=== PATIENT | female | born 1965 | race Hispanic/Latino ===

== ENCOUNTER 2020-01-25 08:38 | Observation (INO) | payer OTHER ==
[~2020-01-25] VITALS: Ht 149.9 cm; Wt 58.5 kg
[~2020-01-25 08:38] MED LIST: COLLAGEN PLUS1 EACH PO; ROPIVACAINE 246.25 MG, EPINEPHRINE HCL 1:1000 1ML 0.5 MG, CLONIDINE HCL 0.08 MG, KETORO... INJ ONE; VIT C PO; VIT D3 PO; VIT E PO
[2020-01-25] MEDS ORDERED: CELECOXIB 200 MG CAP ONE (09:27)
[2020-01-25] MEDS ORDERED: GABAPENTIN 300 MG CAP ONE (09:27)
[2020-01-25] MEDS ORDERED: DEXAMETHASONE SOD PHOS 10 MG/1 ML VIAL ONE (09:27)
[2020-01-25] MEDS ORDERED: CEFAZOLIN SOD 1 GM/NS 50ML 100 ML IV ONE (09:28)
[2020-01-25] MEDS ORDERED: SODIUM CHLORIDE 0.9% 500ML 500 ML ONE (09:56)
[2020-01-25] MEDS ORDERED: VANCOMYCIN HCL 1,000 MG ONE (09:56)
[2020-01-25] MEDS ORDERED: TRANEXAMIC ACID 1,000 MG/10 ML ML ONE (09:56)
[2020-01-25] MEDS ORDERED: ONDANSETRON HCL INJ 2MG/ML 2ML 2 MG/ML VIAL IV PRN (11:45)
[2020-01-25] MEDS ORDERED: HYDROCODONE/APAP 7.5MG-325MG 1 EA TAB PO PRN (11:45)
[2020-01-25] MEDS ORDERED: ACETAMINOPHEN 650 MG SUPP PR PRN (11:45)
[2020-01-25] MEDS ORDERED: DOCUSATE SODIUM 100 MG CAP PO PRN (11:45)
[2020-01-25] MEDS ORDERED: DIPHENHYDRAMINE HCL INJ 50 MG/ML VIAL IV PRN (11:45)
[2020-01-25] MEDS ORDERED: KETOROLAC TROMETHAMINE 30 MG/ML VIAL IV PRN (11:45)
[2020-01-25] MEDS ORDERED: ZOLPIDEM TARTRATE 5 MG TAB PO PRN (11:45)
[2020-01-25] MEDS ORDERED: MIDAZOLAM HCL 2 MG/2 ML VIAL ONE (11:54)
[2020-01-25] MEDS ORDERED: FENTANYL CITRATE/PF 100MCG/2 ML INJ ONE ×2 (11:54→12:09)
[2020-01-25] MEDS ORDERED: MEPERIDINE HCL INJ 25 MG/ML VIAL ONE (12:15)
--- NOTE | 2020-01-25 12:16 | Diagnostic Imaging Report ---
X-ray right knee portable History: Postop Comparison: None Findings: Status post tibiofemoral arthroplasty with expected postoperative changes of soft tissue swelling, air, orthopedic hardware in near anatomic alignment. Impression: As above. Signed by: Laith Freed MD on 01/25/2020 12:12 PM
[2020-01-25] MEDS ORDERED: DEXAMETHASONE SOD PHOS INJ 4 MG/ML VIAL ONE (12:32)
[2020-01-25] MEDS ORDERED: PROPOFOL IV EMULSION 10 MG/ML 20 ML VIAL ONE (12:32)
[2020-01-25] MEDS ORDERED: LIDOCAINE HCL 2% LOCAL INJ 5 ML SDV VIAL INJ ONE (12:32)
[2020-01-25] MEDS ORDERED: ONDANSETRON HCL INJ 2MG/ML 2ML 2 MG/ML VIAL ONE (12:32)
[2020-01-25] MEDS ORDERED: SEVOFLURANE INHAL SOLN 250 ML PEN BTL ONE (12:32)
--- OUTSIDE RECORDS SUMMARY | 2020-01-25 12:34 | XMS REPORT | Clinical Summary ---
Author Author [facility] Address Unknown Phone Unavailable Care Team Providers Care Blender Helper Name Role Phone Geovani Vaca MD PCP Unavailable Allergies No Known Allergies Medications End Date Status Medication Sig Dispensed Refills Start Date Active calcium carbonate/vitamin Take by 0 D3 (CALCIUM+D ORAL) mouth. Active omega-3s/dha/epa/fish oil Take by 0 (OMEGA 3 ORAL) mouth. Active estradiol (ESTRACE) 0.01 Place 0 % (0.1 mg/gram) vaginal vaginally 3 cream (three) times a week. Active Problems Not on file Social History Date Tobacco Use Types Packs/Day Years Used Never Smoker Smokeless Tobacco: Never Used Drinks/Week oz/Week Comments Alcohol Use No Sex Assigned at Date Recorded Not on file Last Filed Vital Signs Not on file Plan of Treatment Health Maintenance Due Date Last Done Comments BREAST CANCER SCREENING 1965 CERVICAL CANCER SCREENING 1988 PAP ONLY (Age 21-65) LIPID PANEL 2012 INFLUENZA VACCINE (#1) 2019 COLON CANCER SCREENING 12/21/2027 12/20/2017 COLONOSCOPY Results Not on fileafter 01/24/2019 Insurance Type Payer Benefit Subscriber ID Effective Phone Address Plan / Dates Group ABE FISH [id number] 2017-P SUPERIOR resent [phone]
--- OUTSIDE RECORDS SUMMARY | 2020-01-25 12:34 | XMS REPORT | Continuity of Care Document ---
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 Name Role Phone Geovani Vaca MD PCP Unavailable MAGALI SANFORD Atttosin Unavailable Rashaad CHANG Admphynatalia Unavailable Payers Payer Name Policy Type Policy Number Effective Date Expiration Date S ource Problems Condition Name Condition Details Condition Category Status Onset Date Resolution Date Last Treatment Date Treating Clinician Comments Source Prediabetes Prediabetes Problem Active 2019-03-09 00:00:00 [facility] Mixed hyperlipidemia Mixed Hyperlipidemia Problem Active 00:00:00 [facility] Recurrent hematuria Recurrent Hematuria Problem Active 2018-11-03 00:00 :00 [facility] Osteoarthritis of knee Osteoarthritis of Knee Problem Active 2018-10-28 00:00:00 [facility] Allergies, Adverse Reactions, Alerts Allergy Name Allergy Type Status Severity Reaction(s) Onset Date Inacti ve Date Treating Clinician Comments Source No Known Drug Allergies DA Active U 2019-04-08 00:00:00 [facility] nickel DA Active MO 2019-04-08 00:00:00 [facility] No Known Contrast Allergies DA Active U 2003-10-10 00:00: 00 [facility] No Known Drug Allergies DA Active U 2003-10-10 00:00:00 [facility] No Known Food Allergies DA Active U 2003-10-10 00:00:00 [facility] No Known Other Allergies DA Active U 2003-10-10 00:00:00 [facility] No Known Drug Intolerances DA Active U 2003-10-09 00:00:0 0 [facility] Social History Social Habit Start Date Stop Date Quantity Comments Source Sex Assigned At [facility] Tobacco use and exposure 2017-12-20 00:00:00 2017-12-20 00:00:00 Montserrat garcia used [facility] Alcohol intake 2017-12-20 00:00:00 2017-12-20 00:00:00 Current non-drinker of alcohol (finding) [facility] Heraclio garcia Smoking Status Start Date Stop Date Source Never smoker [facility] Medications Ordered Medication Name Filled Medication Name Start Date Stop Da te Current Medication? Ordering Clinician Indication Dosage Frequency Signature (SIG) Comments Components Source calcium carbonate/vitamin D3 (CALCIUM+D ORAL) 2017-12-20 11:13:3 2 Yes Take by mouth. [facility] omega-3s/dha/epa/fish oil (OMEGA 3 ORAL) 2017-12-20 11:13:32 Yes Take by mouth. [facility] estradiol (ESTRACE) 0.01 % (0.1 mg/gram) vaginal cream 2017-12-20 11:13:[id number] vaginally 3 (three) times a week. [facility] estradiol 0.01% (0.1 mg/gram) vaginal cr eam Insert 1 g 3 times a week by vaginal route for 90 days. estradiol 0.01% (0.1 mg/gram) vaginal cr eam Insert 1 g 3 times a week by vaginal route for 90 days. No estradiol 0.01% (0.1 mg/gram) vaginal cream Insert 1 g 3 times a week by vaginal route for 90 days. [facility] Flanax (naproxen) 220 mg tablet Take 1 t ablet every 12 hours by oral route as needed. Flanax (naproxen) 220 mg tablet Take 1 t ablet every 12 hours by oral route as needed. No 1 Q12H Flanax (naproxen) 220 mg tablet Take 1 tablet every 12 hours by oral route as needed. [facility] OneTouch Delica Plus Lancet 33 gauge OneTouch Delica Plus Lancet 33 gauge No OneTouch Delica Plus Lancet 33 gauge [facility] Vitamin D daily Vitamin D daily No Vitamin D daily [facility] Immunizations Ordered Immunization Name Filled Immunization Name Date Status Comments Source influenza, recombinant, quadrIvalent,injectable, prese rvative free influenza, recombinant, quadrIvalent,injectable, preservative free 2019-11-13 09:43:00 Completed [facility] zoster recombinant zoster recombinant 2018-03-12 18:28:00 Completed [facility] zoster recombinant zoster recombinant 2017-08-13 17:25:00 Completed [facility] Tdap Tdap 2017-08-13 17:25:00 Completed [facility] Tdap Tdap 2010-03-04 00:00:00 Completed [facility] Vital Signs Vital Name Observation Time Observation Value Comments Source BP Diastolic 2020-01-12 00:00:00 69 mm[Hg] [facility] Height 2020-01-12 00:00:00 59 [in_i] [facility] BMI (Body Mass Index) 2020-01-12 00:00:00 26.3 kg/m2 [facility] BP Systolic 2020-01-12 00:00:00 110 mm[Hg] [facility] Body Weight 2020-01-12 00:00:00 130 [lb_av] [facility] BP Diastolic 2019-11-13 00:00:00 64 mm[Hg] [facility] Height 2019-11-13 00:00:00 59 [in_i] [facility] BMI (Body Mass Index) 2019-11-13 00:00:00 25.9 kg/m2 [facility] BP Systolic 2019-11-13 00:00:00 115 mm[Hg] [facility] Body Weight 2019-11-13 00:00:00 128 [lb_av] [facility] BP Diastolic 2019-04-14 00:00:00 68 mm[Hg] [facility] Height 2019-04-14 00:00:00 59 [in_i] [facility] BMI (Body Mass Index) 2019-04-14 00:00:00 26.3 kg/m2 [facility] BP Systolic 2019-04-14 00:00:00 100 mm[Hg] [facility] Body Weight 2019-04-14 00:00:00 130 [lb_av] [facility] BP Diastolic 2019-03-09 00:00:00 80 mm[Hg] [facility] Height 2019-03-09 00:00:00 59 [in_i] [facility] BMI (Body Mass Index) 2019-03-09 00:00:00 26.7 kg/m2 [facility] BP Systolic 2019-03-09 00:00:00 118 mm[Hg] [facility] Body Weight 2019-03-09 00:00:00 132 [lb_av] [facility] BP Diastolic 2018-10-29 00:00:00 78 mm[Hg] [facility] Height 2018-10-29 00:00:00 59 [in_i] [facility] BMI (Body Mass Index) 2018-10-29 00:00:00 28 kg/m2 [facility] BP Systolic 2018-10-29 00:00:00 117 mm[Hg] [facility] Body Weight 2018-10-29 00:00:00 138.4 [lb_av] [facility] BP Diastolic 2018-10-15 00:00:00 70 mm[Hg] [facility] Height 2018-10-15 00:00:00 59 [in_i] [facility] BMI (Body Mass Index) 2018-10-15 00:00:00 28.1 kg/m2 [facility] BP Systolic 2018-10-15 00:00:00 112 mm[Hg] [facility] Body Weight 2018-10-15 00:00:00 139 [lb_av] [facility] BP Diastolic 2018-06-18 00:00:00 70 mm[Hg] [facility] Height 2018-06-18 00:00:00 59 [in_i] [facility] BMI (Body Mass Index) 2018-06-18 00:00:00 28.5 kg/m2 [facility] BP Systolic 2018-06-18 00:00:00 120 mm[Hg] [facility] Body Weight 2018-06-18 00:00:00 141 [lb_av] [facility] Procedures Procedure Date / Time Performed Performing Clinician Sourc e electrocardiogram 2020-01-12 00:00:00 [facility] DEXA 2019-03-09 00:00:00 [facility] MAMMO, screening, bilateral 2018-10-15 00:00:00 [facility] Colonoscopy 2017-12-20 00:00:00 [facility] Removal of Ovarian Cyst(s) 2016-03-04 00:00:00 [facility] Hysterectomy (Total) 2016-03-04 00:00:00 [facility] Plan of Care Planned Activity Planned Date Details Comments Source Future Scheduled Test 2027-12-21 00:00:00 Screening for mary gnant neoplasm of colon (procedure) [code = 545560757] [facility] Diagnostic Test Pending 2020-01-12 00:00:00 CBC w/ auto diff [code = CBC w/ auto diff] [facility] Diagnostic Test Pending 2020-01-12 00:00:00 PT/PTT, plasma [ code = PT/PTT, plasma] [facility] Diagnostic Test Pending 2020-01-12 00:00:00 BMP, serum or pl asma [code = BMP, serum or plasma] [facility] Future Scheduled Test 2019-11-03 00:00:00 INFLUENZA VACCINE (#1) [code = INFLUENZA VACCINE (#1)] [facility] Future Scheduled Test 2012 00:00:00 Lipid panel (proce dure) [code = 97627601] [facility] Future Scheduled Test 1988 00:00:00 Screening for mary gnant neoplasm of cervix (procedure) [code = 173693046] [facility] Future Scheduled Test 1967 00:00:00 Screening for mary gnant neoplasm of breast (procedure) [code = 673906303] [facility] Future Appointment 2020-05-12 00:00:00 Kina Arguello, [address]; [address], [place] [address] [facility] genna Encounters Start Date/Time End Date/Time Encounter Type Admission Type [facility] Facility Care Department Encounter ID Source 2020-01-12 00:00:00 2020-01-12 00:00:00 Cassi Nixon MD: [address], [address], [place] [address], Ph. [facility] [place] [facility] (WAG) [id number] [facility] e 2019-11-13 00:00:00 2019-11-13 00:00:00 Kina Arguello PBX TECHNICIAN : [address], [address], [place] [address], [facility]. [facility] [id number] [facility] 2019-04-14 00:00:00 2019-04-14 00:00:00 Kina Arguello, PBX TECHNICIAN : [address] [place] [address], Ph. [facility] [id number] [facility] 2019-03-09 00:00:00 2019-03-09 00:00:00 Kina Arguello, PBX TECHNICIAN : [address] [place] [address], Ph. [facility] [id number] [facility] 2018-10-29 00:00:00 2018-10-29 00:00:00 Lauren gomez MD: [address] [place] [address], Ph. [facility] [id number] [facility] 2018-10-15 00:00:00 2018-10-15 00:00:00 Lauren gomez MD: [address] [place] [address], Ph. [facility] [id number] [facility] 2018-06-18 00:00:00 2018-06-18 00:00:00 Yuri shaffer MD: [address] [place] [address], Ph. [facility] [id number] [facility] Results Test Description Test Time Test Comments Results Result Comments Source KNEE RIGHT 1-2 VIEWS 2020-01-25 12:11:00 [facility] CENTERName: ASHLEY HUTTON : 1965 Sex: F [facility] [address] [address] Patient Name: ASHLEY HUTTON MR #: [id number] : 1965 Age/Sex: 54/F Req #: [id number] Adm Physician: Ordered by: MAGALI SANFORD MD Report #: [id number] Location: OR Room/Bed: Procedure: [id number] DX/KNEE RIGHT 1-2 VIEWS Exam Date: 01/25/20 Exam Time: 1140 REPORT STATUS: Signed X-ray right knee portable History: Postop Comparison: None Findings: Status post tibiofemoral arthroplasty with expected postoperative changes of soft tissue swelling, air, orthopedic hardware in near anatomic alignment. Impression: As above. Signed by: Laith Martines MD on 01/25/2020 12:12 PM Dictated By: LAITH MARTINES MD 11 Transcribed By: ELENA on 01/25/201211 COPY TO: MAGALI SANFORD MD SCR [facility] BILATERAL PATRICK CAD DIGITAL 2019-12-29 12:56:04 Name: Ashley : 1965 Sex: F - SCR MAMM BILATERAL PATRICK CAD DIGITALBILATERAL DIGITAL SCREENING MAMMOGRAM 3D/2D WITH CAD: 12/16/2019CLINICAL: Asymptomatic. Digital breast tomosynthesis was performed in addition to routine CC and MLO views. Current mammographic images were evaluated by either a [employer] M-Vu or a [employer] ImageChecker CAD (computer aided detection system). Comparison is made to exams dated 07/03/2016 mammogram, 07/11/2015 mammogram, and 05/02/2015 mammogram - [facility]. The tissue of both breasts is heterogeneously dense. This may lower the sensitivity of mammography. There is a benign calcification in the right breast. No s uspicious mass, architectural distortion, malignant type calcification, or lymph node abnormality detected. Breast architecture is stable compared to prior exams.IMPRESSION: BENIGNThere is no mammographic evidence of malignancy. Resume annual screening mammography in one year. Jan Payton M.D. ss/penrad:12/29/2019 12:56:04 Attendant [facility]: Tia Mcmanus , [facility] sent: BIRADS 1-2 Normal Mammogram BI-RADS: 2 Benign COMPREHENSIVE METABOLIC PANEL 2019-04-08 19:16:00 Test Item SODIUM (test code = NA) 145 mmol/L 136-145 N POTASSIUM (test code = K) 4.1 mmol/L 3.5-5.1 N CHLORIDE (test code = CL) 104.0 mmol/L 98-107 N CARBON DIOXIDE (test code = CO2) 29.9 mmol/L 21-32 N GLUCOSE (test code = GLU) 98 mg/dL 70-110 N BLOOD UREA NITROGEN (test code = BUN) 11 mg/dL 7-18 N GLOMERULAR FILTRATION RATE (test code = GFR) 116.1 >60 Unit of measure: mL/min/1.73 [id number] Range:Healthy Adults >90 mL/min/1.73 m2 For Chronic Kidney Disease: Stage II Mild Decrease in GFR 60-90 Stage III Moderate Decrease in GFR 30-59 Stage IV Severe Decrease in GFR 15-29 Stage V Kidney Failure <15 CREATININE (test code = CREAT) 0.55 mg/dL 0.55-1.30 N TOTAL PROTEIN (test code = PROT) 7.8 g/dL 6.4-8.2 N ALBUMIN (test code = ALB) 4.1 g/dL 3.4-5.0 N GLOBULIN (test code = GLOB) 3.7 g/dL 2.2-4.2 N ALBUMIN/GLOBULIN RATIO (test code = A/G) 1.1 0.7-2.0 N CALCIUM (test code = CA) 8.2 mg/dL 8.2-10.1 N BILIRUBIN TOTAL (test code = BILT) 0.21 mg/dL 0.2-1.00 N SGOT/AST (test code = AST) 30.0 U/L 15-37 N SGPT/ALT (test code = ALT) 37.0 U/L 12-78 N P lease note new normal range. ALKALINE PHOSPHATASE TOTAL (test code = ALKP) 132 U/L 46-116 H CBC W/AUTO [id number] 18:35:00* Test Item Value Reference Range Interpretation Comments WHITE BLOOD CELL (test code = WBC) 7.7 K/mm3 5.8-11.0 N RED BLOOD CELL (test code = RBC) 3.99 M/mm3 4.2-5.4 L HEMOGLOBIN (test code = HGB) 12.1 g/dL 12-16 N HEMATOCRIT (test code = HCT) 37.0 % 37-47 N MEAN CELL VOLUME (test code = MCV) 93 fL 80-98 N MEAN CELL HGB (test code = MCH) 30.3 pg 27-34 N MEAN CELL HGB CONCENTRATION (test code = MCHC) 32.7 g/dL 30.8-34 .1 N RED CELL DISTRIBUTION WIDTH (test code = RDW) 11.8 % 11-16 N PLT (test code = PLT) 232 K/mm3 130-400 N MEAN PLATELET VOLUME (test code = MPV) 12.0 fL 8.9-12.1 N NEUTROPHIL % (test code = NT%) 55.0 % 45-70 N LYMPHOCYTE % (test code = LY%) 36.9 % 20-40 N MONOCYTE % (test code = MO%) 6.4 % 3-10 N EOSINOPHIL % (test code = EO%) 1.0 % 1-5 N BASOPHIL % (test code = BA%) 0.3 % 0.0-1.1 N NEUTROPHIL # (test code = NT#) 4.23 K/mm3 2.00-7.50 N LYMPHOCYTE # (test code = LY#) 2.84 K/mm3 1.50-4.00 N MONOCYTE # (test code = MO#) 0.49 K/mm3 0.2-0.8 N EOSINOPHIL # (test code = EO#) 0.08 K/mm3 0.04-0.4 N BASOPHIL # (test code = BA#) 0.02 K/mm3 0.02-0.10 N MANUAL DIFF REQUIRED (test code = MDIFF) NO MANUAL DIFF NUCLEATED RED BLOOD CELL (test code = NRBC) 0 % 0-0 N Urinalysis complete W Reflex Culture panel - [id number] 00:00:00* Test Item Value Reference Range Interpretation Comments color (test code = color) yellow yellow appearance (test code = appearance) clear clear specific gravity (test code = specific gravity) 1.013 1.001- 1.035 pH (test code = pH) 7.0 5.0-8.0 glucose (test code = glucose) negative negative bilirubin (test code = bilirubin) negative negative ketones (test code = ketones) negative negative occult blood (test code = occult blood) 1+ negative A protein (test code = protein) negative negative nitrite (test code = nitrite) negative negative leukocyte esterase (test code = leukocyte esterase) negative ne gative WBC (test code = WBC) none seen < or = 5 RBC (test code = RBC) 0-2 < or = 2 squamous epithelial cells (test code = squamous epithelial cells ) 0-5 < or = 5 bacteria (test code = bacteria) moderate none seen A hyaline cast (test code = hyaline cast) none seen none seen reflexive urine culture (test code = reflexive urine c ulture) no culture indicated [facility] Differential panel - [id number] 00:00:00 * Test Item Value Reference Range Interpretation Comments WBC (test code = WBC) 8.24 x10*3/?L 3.98-10.04 RBC (test code = RBC) 4.28 10*12/L 3.93-5.22 hemoglobin (test code = hemoglobin) 12.90 g/dL 11.20-15.70 hematocrit (test code = hematocrit) 39.5 % 34.1-44.9 MCV (test code = MCV) 92.3 fL 80.0-100.0 MCH (test code = MCH) 30.1 pg 25.6-32.2 MCHC (test code = MCHC) 32.7 g/dL 32.2-35.5 RDW-SD (test code = RDW-SD) 40.8 fL 36.4-46.3 platelet count (test code = platelet count) 234.0 k/uL 182.0-369. 0 MPV (test code = MPV) 13.1 fL 7.5-11.5 H neut% (test code = neut%) 62.8 % 34.0-71.1 lymph% (test code = lymph%) 28.8 % 19.3-51.7 mon% (test code = mon%) 7.0 % 4.7-12.5 eos% (test code = eos%) 1.3 % 0.7-5.8 baso% (test code = baso%) 0.1 % 0.1-1.2 neut# (test code = neut#) 5.2 x10*3/?L 1.6-6.1 lymph# (test code = lymph#) 2.4 x10*3/?L 1.2-3.7 mon# (test code = mon#) 0.6 x10*3/?L 0.2-0.9 eos# (test code = eos#) 0.11 x10*3/?L 0.04-0.36 baso# (test code = baso#) 0.01 x10*3/?L 0.01-0.08 [facility] - Serum or Plasma 2018-10-15 00:00:00* Test Item Value Reference Range Interpretation Comments ALT (test code = ALT) 20 U/L 0-55 AST (test code = AST) 22 U/L 5-34 BUN (test code = BUN) 12.7 mg/dL 9.8-25.0 alk phos (test code = alk phos) 133 unit/L 40-150 glucose (test code = glucose) 94 mg/dL 70-99 albumin (test code = albumin) 4.1 g/dL 3.4-5.1 creatinine (test code = creatinine) 0.70 mg/dL 0.57-1.11 eGFR non- (test code = eGFR non-) > 60 total bilirubin (test code = total bilirubin) 0.3 mg/dL 0.2-1.2 eGFR - (test code = eGFR - ) >60 sodium (test code = sodium) 141 mEq/L 135-145 potassium (test code = potassium) 4.6 mEq/L 3.5-5.1 chloride (test code = chloride) 105 mmol/L 98-110 total protein (test code = total protein) 7.9 g/dL 6.1-8.2 calcium (test code = calcium) 9.7 mg/dL 8.6-10.4 CO2 (test code = CO2) 29.7 mmol/L 20.0-32.0 anion gap (test code = anion gap) 6 calc [facility] - Serum or [id number] 00:00:00* Test Item Value Reference Range Interpretation Comments HDL (test code = HDL) 46 mg/dL L triglyceride (test code = triglyceride) 192 mg/dL 0-150 H VLDL (calculated) (test code = VLDL (calculated)) 38 mg/dL cholesterol/HDL ratio (test code = cholesterol/HDL ratio) 4.6 mg/dL non-HDL cholesterol (calculated) (test code = non-HDL cholesterol (calculated)) 164 mg/dL 0-160 H cholesterol (test code = cholesterol) 210 mg/dL 0-200 H Cholesterol in LDL [Mass/volume] in Serum or Plasma (t est code = 2089-1) 126 mg/dL 0-130 [facility] [Units/volume] in Serum or [id number] 00:00:00* Test Item Value Reference Range Interpretation Comments TSH (test code = TSH) 1.391 uIU/mL 0.350-4.940 [facility] HospitalPdqycara93-Nlbxjkullholqq D [Mass/volume] in Serum or Plasma 2018-10-15 00:00:00* Test Item Value Reference Range Interpretation Comments vitamin D 25OH (test code = vitamin D 25OH) 33.8 NG/mL 30.0-96.0 [facility] A1c/Hemoglobin.total in [id number] 00:00:00* Test Item Value Reference Range Interpretation Comments Hemoglobin A1c/Hemoglobin.total in Blood (test code = 4548-4) 5.9 % 1.0-5.7 H average blood glucose (test code = average blood glucose) 123 mg/dL [facility]
--- NOTE | 2020-01-25 12:39 | Operative Report ---
DATE OF PROCEDURE: 01/25/2020 SURGEON: Antonino Gordon MD [facility] [employer] OPERATOR: Mendez Laurent, certified PA. PREOPERATIVE DIAGNOSIS: Osteoarthritis, right knee. POSTOPERATIVE DIAGNOSIS: Osteoarthritis, right knee. PROCEDURE: Right total knee arthroplasty. INDICATIONS: The patient is a 54-year-old lady, who has advanced valgus osteoarthritis of her right knee. She has failed conservative management. She was initially treated by other physicians. She was scheduled for a total knee replacement, but had insurance issues. She ended up in my clinic. I have discussed the procedure and the implants at length. Just this morning, she states that she feels she has an allergy to metals. I explained true allergy to metals was extremely rare, but, if she is concerned, she could go without having a knee replacement. There is no knee replacement that has no metal in it. After thorough discussion, she states she would like to proceed with the surgery. PROCEDURE IN DETAIL: The patient was brought to the operating room and placed under general anesthetic. She received prophylactic antibiotics, a regional block, and tranexamic acid in the holding area. Her right lower extremity was prepped and draped in a sterile manner. A preoperative time-out was performed. The extremity was exsanguinated and a proximal tourniquet was inflated to 300 mmHg. An anterior incision with a medial parapatellar arthrotomy was performed. A small amount of clear synovial fluid was removed from the joint. Soft tissue releases were performed to bring the knee up into flexion with the patella everted. Limited medial dissection was performed due to the valgus deformity. The cruciate ligaments, marginal osteophytes, and meniscal remnants were removed. A Julianne/Biomet Persona Knee System was used. An extramedullary cutting guide was used to resect the proximal tibia. The tibial base plate was a size C. The central fin punch was drilled and impacted. Attention was directed towards the distal femur. An intramedullary cutting guide was used to resect the distal femur in 5 degrees of valgus and rotation referencing off a combination of landmarks including Whitesides line, the epicondylar axis, and the posterior condyles. The femoral component was a size 5. We elected to use a narrow component. A lamina loop puller was placed into the knee due to the valgus deformity. Lateral soft tissues were sequentially released until the knee was balanced. A trial reduction was performed. A 10 mm medial congruent tibial insert provided appropriate soft tissue balancing in full extension and 90 degrees of flexion. The patella was resurfaced with a 26 mm patellar button. Patellar tracking was noted to be concentric. The trial implants were then all removed. A 100 mL premixed pericapsular ROXANNA injection was placed into the surrounding soft tissue. The knee was thoroughly irrigated with a shower tip pulsatile lavage. The components were cemented into place using a single mix of high viscosity Biomet cement preloaded with antibiotics. Care was taken to remove all extravasated cement. The wound was further irrigated while the cement cured. The arthrotomy was then closed with interrupted #1 Ethibond. The knee was put through flexion and extension to ensure a secure closure. The skin was closed with subcuticular Vicryl and wojciech. A sterile Aquacel bandage was applied. An Matthew wrap was applied. The patient was extubated and transported to the recovery room in stable condition. Blood loss was minimal. All needle and sponge counts were correct. Antonino Gordon MD DR/FLORENCIO /[id number]
--- NOTE | 2020-01-25 13:12 | NUR ---
Received patient from PACU. Patient A/O X3, even respirations on RA. Vital signs stable. Right knee dressing c/d/i, Nazario hose to left leg, foot pumps in place. Left hand 20 gauge IV intact/patent. Call light in reach will continue to monitor patient.
[2020-01-25 13:40] VITALS: BP 116/62
[2020-01-25 13:41] VITALS: BP 116/62
[2020-01-25] MEDS: SODIUM CHLORIDE 0.9% 1000ML 1,000 ML IV SCH ×2 (14:36→23:30)
[2020-01-25 15:37] LABS: BASOPHILS % 0.3 % (0.0-1.0); HEMATOCRIT 35.7 % (34.2-44.1); HEMOGLOBIN 11.5 g/dL (12.0-16.0); LYMPHOCYTES # (AUTO) 0.6 (1.0-3.2); LYMPHOCYTES % 5.8 % (18.0-39.1); MEAN CORPUSCULAR HEMOGLOBIN 29.6 pg (28-32); MEAN CORPUSCULAR HGB CONC 32.2 g/dL (31-35); MONOCYTES % 0.4 % (4.4-11.3); NEUTROPHILS # (AUTO) 10.1 (2.1-6.9); NEUTROPHILS % 92.8 % (38.7-80.0); PLATELET COUNT 204 x10e3/uL (140-360); RED BLOOD COUNT 3.88 x10e6/uL (3.6-5.1); RED CELL DISTRIBUTION WIDTH 12.5 % (11.7-14.4)
--- NOTE | 2020-01-25 15:39 | NUR ---
DR NGUYEN OFFICE PREARRANGED FOLLOWING DISCHARGE PLAN OF: HOME [address] [address] [facility] CONFIRMED WITH [facility] [phone] DME 3 IN ONE COMMODE ROLLING WALKER AND CPM PROVIDED BY [email or web address] [facility] [phone]
--- NOTE | 2020-01-25 15:51 | NUR ---
Dictated consult note: [id number]
--- NOTE | 2020-01-25 16:31 | Consultation ---
DATE OF CONSULTATION: REASON FOR CONSULTATION: Medical management. HISTORY OF PRESENT ILLNESS: This is a 54-year-old woman who was admitted to [facility] with a diagnosis of advanced right knee osteoarthritis. Today, the patient underwent successful right total knee arthroplasty that was performed by Dr. Antonino Gordon. The patient currently voices no complaints. The patient states she is a prediabetic and previously she was on diabetic medication. The patient states that her primary care doctor stopped her diabetic medication recently. The patient states that during her pregnancies, she did not have gestational diabetes. Once again, the patient voiced no complaints. The patient already ambulated today with physical therapy. The patient states her pain is well controlled. REVIEW OF SYSTEMS: GENERAL: Weight is stable. No fever or chills. HEENT: No headaches. No vision changes. CARDIOVASCULAR/RESPIRATORY: No chest pain. No short of breath. No cough. GI: No nausea, vomiting, or constipation. : No Prado catheter in place. The patient denies any UTI symptoms. NEUROMUSCULAR: The patient states the pain in her right knee is well controlled. ALLERGIES: NO KNOWN DRUG ALLERGIES. HOME MEDICATIONS: 1. Vitamin C with collagen once daily. 2. Vitamin C once daily. 3. Vitamin D3 once daily. 4. Vitamin E once daily. FAMILY HISTORY: Mother with diabetes mellitus. SOCIAL HISTORY: This patient is , lives with her . She is not employed. No history of tobacco or alcohol use. PAST MEDICAL HISTORY: 1. Prediabetes. 2. Right knee osteoarthritis. PAST SURGICAL HISTORY: 1. Right total knee arthroplasty today. 2. section. 3. Vaginal hysterectomy. PHYSICAL EXAMINATION: GENERAL: She is awake. She is alert. She is oriented. Her is at bedside. She has no obvious distress. She speaks predominantly [place]. She is very pleasant and cooperative with exam. VITAL SIGNS: Height 4 feet 11 inches, weight 129 pounds. BMI 26. Blood pressure is 160/62, pulse 82, respiratory rate 16, temperature 97.8, oxygen saturation is 98% on room air. INTEGUMENT: Skin is warm and dry. No pallor. No jaundice or diaphoresis. HEENT: Anterior sclerae. Moist mucous membranes. NECK: Supple. CARDIOVASCULAR: Regular rate and rhythm. LUNGS: No rales. No rhonchi. No wheezes. ABDOMEN: Benign. EXTREMITIES: No edema or deformity. The patient's right knee is currently dressed. The patient has sequential compression devices on her bilateral feet. NEUROLOGIC: Intact. No deficits appreciated. DIAGNOSES: 1. Status post right total knee arthroplasty. 2. Prediabetes. PLAN: 1. Follow glucose level. 2. Pain control. 3. Mobilize the patient with physical therapy. 4. Continue bilateral pedal sequential compression devices to prevent deep venous thrombosis. 5. We will proceed with aspirin 325 mg by mouth twice a day as ordered by the orthopedic surgeon to prevent deep venous thrombosis. 6. Encouraged incentive spirometer usage to prevent atelectasis. I would like to thank, Dr. Gordon, for this generous consult. I spent 35 minutes in the care of the patient. MD HANNAH Mcmullen/FLORENCIO /[id number]
[2020-01-25 17:09] VITALS: BP 102/59
[2020-01-25] MEDS: CEFAZOLIN SOD 1 GM/NS 50ML 50 ML IV SCH (17:28)
[2020-01-25] MEDS ORDERED: ROPIVACAINE 0.5% 5 MG/ML 30 ML SDV ONE (17:28)
[2020-01-25] MEDS: ASPIRIN 325 MG TAB PO SCH (17:28)
--- NOTE | 2020-01-25 17:30 | NUR ---
Placed patient on CPM 55 degrees patient tolerating well.
[2020-01-25] MEDS: CELECOXIB 200 MG CAP PO SCH (18:17)
[2020-01-25 19:00] VITALS: BP 98/56
[2020-01-25 20:34] VITALS: BP 102/59
[2020-01-26 00:22] VITALS: BP 102/65
[2020-01-26] MEDS: CEFAZOLIN SOD 1 GM/NS 50ML 50 ML IV SCH ×2 (01:43→09:06)
[2020-01-26] MEDS: HYDROCODONE/APAP 5MG-325MG TAB PO PRN ×2 (05:40→13:21)
[2020-01-26 06:07] VITALS: BP 110/62
[2020-01-26 06:52] LABS: BASOPHILS % 0.3 % (0.0-1.0); EOSINOPHILS % 0.1 % (0.0-6.0); HEMATOCRIT 34.1 % (34.2-44.1); HEMOGLOBIN 10.8 g/dL (12.0-16.0); LYMPHOCYTES % 13.8 % (18.0-39.1); MEAN CORPUSCULAR HEMOGLOBIN 29.4 pg (28-32); MEAN CORPUSCULAR HGB CONC 31.7 g/dL (31-35); MEAN CORPUSCULAR VOLUME 92.9 fL (81-99); MONOCYTES # (AUTO) 1.3 (0.2-0.8); MONOCYTES % 8.6 % (4.4-11.3); NEUTROPHILS # (AUTO) 11.2 (2.1-6.9); NEUTROPHILS % 76.7 % (38.7-80.0); PLATELET COUNT 212 x10e3/uL (140-360); RED BLOOD COUNT 3.67 x10e6/uL (3.6-5.1); RED CELL DISTRIBUTION WIDTH 12.4 % (11.7-14.4)
--- NOTE | 2020-01-26 07:00 | NUR ---
RECEIVED PATIENT RESTING IN BED NO S/S OF DISTRESS. BED LOW, WHEELS LOCKED, SIDE RAILS X2. CALL LIGHT IN REACH WILL CONTINUE TO MONITOR. CPM REMOVED, PATIENT TOLERATED WELL.
[2020-01-26 07:12] LABS: ANION GAP 12.3 mmol/L (8-16); BLOOD UREA NITROGEN 16 mg/dL (7-26); BUN/CREATININE RATIO 23 (6-25); CALCIUM 8.3 mg/dL (8.4-10.2); CARBON DIOXIDE 26 mmol/L (22-29); CHLORIDE 106 mmol/L (98-107); CREATININE, SERUM 0.69 mg/dL (0.57-1.11); EST GLOMERULAR FILTRATION RATE > 60 ML/MIN (60-); GLUCOSE 110 mg/dL (74-118); POTASSIUM 4.3 mmol/L (3.5-5.1); SODIUM 140 mmol/L (136-145)
[2020-01-26] MEDS: CELECOXIB 200 MG CAP PO SCH (08:00)
[2020-01-26] MEDS: ASPIRIN 325 MG TAB PO SCH (08:00)
[2020-01-26] MEDS: SODIUM CHLORIDE 0.9% 1000ML 1,000 ML IV SCH (08:00)
[2020-01-26 08:05] VITALS: BP 98/51
[2020-01-26] MEDS ORDERED: ASPIRIN81 MG PO (08:44)
[2020-01-26 08:54] VITALS: BP 98/51
--- NOTE | 2020-01-26 10:44 | Progress Note ---
DATE: 01/26/2020 CHIEF COMPLAINT/HISTORY OF PRESENT ILLNESS: This is a 54-year-old woman, who underwent right total knee arthroplasty on January 25, 2020. The patient tolerated the surgery quite well. The patient states she is having pain in her right knee. The patient denies any chest pain, shortness of breath, or cough. The patient's hemoglobin today is 10.8 g/dL. The patient's white blood cell count today is 14,500 with 76% segmented neutrophils. The patient's basic metabolic profile was within normal limits today. REVIEW OF SYSTEMS: As per HPI. PHYSICAL EXAMINATION: GENERAL: She is awake. She is alert. She is oriented. The patient speaks predominantly Polish. The patient does not appear to be in any obvious distress. She is pleasant and cooperative with exam. VITAL SIGNS: Blood pressure is 98/52, pulse 70, respiratory rate 18, temperature 97.8, oxygen saturation 100% on room air. Height is 4 feet 11 inches, weight 126 pounds. BMI 26. INTEGUMENT: Skin is warm and dry. No pallor, jaundice, or diaphoresis. HEENT: Anicteric sclerae. Moist mucous membranes. NECK: Supple. CARDIOVASCULAR: Regular rate and rhythm. LUNGS: No rales. No rhonchi. No wheezes. ABDOMEN: Benign. EXTREMITIES: The patient's right knee joint is currently dressed. NEUROLOGIC: Intact. DIAGNOSES: 1. Status post right total knee arthroplasty. 2. Prediabetes. PLAN: 1. Mobilize with physical therapy. 2. Pain control with oral hydrocodone. 3. Continue aspirin 325 mg twice a day as ordered by the orthopedic surgeon to prevent deep venous thrombosis. 4. Instruct the patient to continue incentive spirometry usage to prevent atelectasis. 5. Discharge planning for today. I spent 20 minutes in the care of the patient. MD HANNAH Mcmullen/FLORENCIO /[id number]
[2020-01-26] MEDS ORDERED: ACETAMINOPHEN 1000 MG/100 ML IV PRN (11:45)
[2020-01-26 11:50] VITALS: BP 116/52
--- NOTE | 2020-01-26 12:30 | NUR ---
Removed patients IV. Catheter tip intact and pressure dressing applied.
[2020-01-26] MEDS ORDERED: ONDANSETRON HCL 4 MG ORAL DISINTEGRATING TAB PO PRN (13:00)
--- NOTE | 2020-01-26 13:24 | NUR ---
Patient discharged from facility. Patient gathered all personal belongings, discharge instructions, and follow up information. Patient left unit in wheelchair and went home via private auto.
== END 2020-01-26 13:24 | disposition home or self-care (01) ==
LOC: OR 08:38 → PACU V 11:41 → MED/SURG 13:14
PROVIDERS: ADMIT Specialist; ATTEND Specialist
DX: M17.11 Unilateral primary osteoarthritis, right knee (principal); R73.03 Prediabetes; Z20.828 Contact with and (suspected) exposure to other viral communicable diseases; Z01.818 Encounter for other preprocedural examination; K21.9 Gastro-esophageal reflux disease without esophagitis
CPT/HCPCS: 27447; 36415 ×2; 73560; 80048; 82948; 85025 ×2; 86850; 86900; 86920; 97110 ×2; 97116 ×2; 97161; 97530; C1713; C1776 ×4; G0378 ×2; J0690 ×2; J1100 ×2; J2001; J2175; J2250; J2405 ×2; J2704; J2795; J3010; J3370; J7030; J7040; U0002

== ENCOUNTER 2020-03-31 09:49 | Outpatient (RCR) | payer OTHER ==
[~2020-03-31 09:49] MED LIST changes: +ASPIRIN81 MG PO; -ROPIVACAINE 246.25 MG, EPINEPHRINE HCL 1:1000 1ML 0.5 MG, CLONIDINE HCL 0.08 MG, KETORO... INJ ONE
== END 2020-04-03 ==
LOC: PT 09:49
PROVIDERS: ATTEND Specialist
DX: Z96.651 Presence of right artificial knee joint (principal); Z47.1 Aftercare following joint replacement surgery; M25.561 Pain in right knee; M25.661 Stiffness of right knee, not elsewhere classified; M62.81 Muscle weakness (generalized)

== ENCOUNTER 2020-04-22 10:00 | Outpatient (RCR) | payer OTHER | END 2020-05-01 | LOC: PT 10:00 | PROVIDERS: ATTEND Specialist | DX: Z96.651 Presence of right artificial knee joint (principal); Z47.1 Aftercare following joint replacement surgery; M25.561 Pain in right knee; M25.661 Stiffness of right knee, not elsewhere classified; M62.81 Muscle weakness (generalized) | CPT/HCPCS: 97139 ==

== ENCOUNTER 2020-05-17 10:00 | Outpatient (RCR) | payer OTHER | END 2020-06-01 | LOC: PT 10:00 | PROVIDERS: ATTEND Specialist | DX: Z96.651 Presence of right artificial knee joint (principal); Z47.1 Aftercare following joint replacement surgery; M25.561 Pain in right knee; M25.661 Stiffness of right knee, not elsewhere classified | CPT/HCPCS: 97139 ==